=== PATIENT | female | born 1950 | race Caucasian/White ===

== ENCOUNTER → 2020-04-18 09:38 | Outpatient (CLI) | payer OTHER, SELFPAY ==
--- NOTE | ~2020-04-18 | DEXA_ITS ---
Bone Density Report Name: Nazia Ceballos Age: 70 Sex: Female Ethnicity: White Date of : 1950 Indication: osteopenia; monitoring treatment; height loss; hysterectomy; postmenopausal Referring Provider: HUMBERTO RICE Study: Bone densitometry was performed. Exam Date: April 18, 2020 Accession number: [id number] Bone Density: Region BMD T-score Z-score Classification AP Spine (L1-L4) 1.120 0.7 2.9 Normal Femoral Neck (Left) 0.673 -1.6 0.3 Osteopenia Total Hip (Left) 0.739 -1.7 0.0 Osteopenia Femoral Neck (Right) 0.631 -2.0 -0.1 Osteopenia Total Hip (Right) 0.731 -1.7 -0.1 Osteopenia Total Hip Mean 0.735 -1.7 -0.1 Osteopenia World Health Organization criteria for BMD impression classify patients as: Normal (T-score at or above -1.0), Osteopenia (T-score between -1.0 and -2.5), or Osteoporosis (T-score at or below -2.5). 10-year Fracture Risk: FRAX not reported because: Treated for osteoporosis Previous Exams: Region Exam Age BMD T-score BMD Change BMD Change Date g/cm2 vs Baseline vs Previous AP Spine(L1-L4) 04/18/2020 70 1.120 0.7 0.046 0.088* 10/19/2017 67 1.032 -0.1 -0.042 0.014 08/21/2015 65 1.018 -0.3 -0.056 0.000 07/10/2013 63 1.018 -0.3 -0.056 -0.022 04/15/2011 61 1.041 -0.1 -0.034 -0.019 04/10/2009 59 1.060 0.1 -0.015 -0.015 12/09/2004 54 1.074 0.2 Total Hip(Left) 04/18/2020 70 0.739 -1.7 -0.084 -0.005 10/19/2017 67 0.744 -1.6 -0.079 0.008 08/21/2015 65 0.736 -1.7 -0.087 -0.024 07/10/2013 63 0.760 -1.5 -0.063 -0.023 04/15/2011 61 0.783 -1.3 -0.039 0.009 04/10/2009 59 0.774 -1.4 -0.048 -0.048 12/09/2004 54 0.823 -1.0 Total Hip(Right) 04/18/2020 70 0.731 -1.7 -0.056 0.013 10/19/2017 67 0.718 -1.8 -0.068 -0.017 08/21/2015 65 0.735 -1.7 -0.051 0.016 07/10/2013 63 0.719 -1.8 -0.067 -0.061* 04/15/2011 61 0.780 -1.3 -0.007 0.006 04/10/2009 59 0.775 -1.4 -0.012 -0.012 12/09/2004 54 0.787 -1.3 *Denotes significance at 95% confidence level, LSC for AP Spine = 0.022 g/cm2, LSC for Total Hip = 0.027 g/cm2 Clinical Information Provided by Patient: Is being treated fo
--- NOTE | ~2020-04-18 | XR_ITS ---
EXAMINATION: XR lumbar spine 2-3V DATE: 04/18/2020 10:45 INDICATION: Dorsalgia, unspecified TECHNIQUE: Anteroposterior and lateral views of the lumbar spine, and cone-down lateral view of the l umbosacral junction were obtained. COMPARISON: None FINDINGS: There is lumbar levocurvature. No fracture is identified. There are 5 mm of retrolisthesis of L1 on L2 and L3 on L4. There is advanced loss of intervertebral disc space height at L5-S1, modera te loss of intervertebral disc space height at T12-L1 and L2-3. The vertebral body heights are mainta ined. There is no fracture. Degenerative osteophytes project from the anterior endplates of multiple vertebral bodies. There is mild facet osteoarthritis of the lower lumbar spine. Calcified atheroscler osis is noted. The bowel gas pattern is normal. IMPRESSION: 1. Severe spondylosis at L5-S1, otherwise moderate lumbar spondylosis without acute findings. Reviewed, dictated and finalized at location A. IMPRESSION: 1. Severe spondylosis at L5-S1, otherwise moderate lumbar spondylosis without a cute findings.
--- NOTE | ~2020-04-18 | MM_ITS ---
EXAMINATION: MM screening son BI w marisa HISTORY: Screening mammogram TECHNIQUE: Craniocaudal and mediolateral oblique 3-D tomosynthesis images were obtained and synthetic 2-D images were generated. CAD analysis was submitted and interpreted. COMPARISON: No prior mammogram is available for comparison at this institution. BREAST PARENCHYMAL COMPOSITION: The breasts are almost entirely fatty. FINDINGS: Stable mild fibroglandular asymmetry. There is no evidence of suspicious mass, calcificatio n, or architectural distortion to suggest malignancy in either breast. There has been no suspicious i nterval change. IMPRESSION: 1. No mammographic evidence of malignancy. 2. Recommend routine screening mammography in one year. BI-RADS Category 2: Benign finding(s). Reviewed, dictated and finalized at location A.
== END ==
PROVIDERS: Visit Provider Family Medicine
DX: Z12.31 Encounter for screening mammogram for malignant neoplasm of breast (principal); Z78.0 Asymptomatic menopausal state; M54.9 Dorsalgia, unspecified; M47.816 Spondylosis without myelopathy or radiculopathy, lumbar region; M85.89 Other specified disorders of bone density and structure, multiple sites
CPT/HCPCS: 72100; 77063; 77067; 77080

== ENCOUNTER 2020-10-24 13:15 | Outpatient (CLI) | payer OTHER, SELFPAY ==
--- NOTE | ~2020-10-24 | US_ITS ---
EXAMINATION: US carotid duplex BI DATE: 10/24/2020 14:31 INDICATION: Peripheral vascular disease. TECHNIQUE: Grayscale, color Doppler, and pulsed Doppler images of the cervical carotid arteries were obtained. The degree of vessel stenosis is placed in one of the following categories: normal, <50%, 5 0-69%, >=70% but less than near-occlusion, near-occlusion, or total occlusion. Note that percent sten osis relative to normal distal artery lumen diameter is indirectly measured from velocity measurement s as described by Sony, et al. Radiology 2003; 229:340-346. COMPARISON: None. FINDINGS: Tachycardia is noted. RIGHT: The right common carotid artery (CCA) peak systolic velocity (PSV) is 74 cm/s. The right internal car otid artery (ICA) PSV is 62 cm/s. The right ICA end-diastolic velocity (EDV) is 14 cm/s. The right IC A/CCA PSV ratio is 0.8. Grayscale and color Doppler images yield an estimate of <50% diameter reducti on from plaque in the ICA. There is antegrade flow in the right vertebral artery. LEFT: The left CCA PSV is 92 cm/s. The left ICA PSV is 89 cm/s. The left ICA EDV is 31 cm/s. The left ICA/C CA PSV ratio is 1.0. Grayscale and color Doppler images yield an estimate of <50% diameter reduction from plaque in the ICA. There is antegrade flow in the left vertebral artery. IMPRESSION: 1. <50% stenosis in the right internal carotid artery. 2. <50% stenosis in the left internal carotid artery. 3. Tachycardia. Reviewed, dictated and finalized at location A. 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
--- NOTE | ~2020-10-24 | US_ITS ---
EXAMINATION: US art doppler w johanna VELOZ DATE: 10/24/2020 14:31 INDICATION: Peripheral vascular disease. TECHNIQUE: Segmental pressures and plethysmographic and Doppler waveforms of the brachial and lower e xtremity arteries were obtained. COMPARISON: None. FINDINGS: Right and left brachial artery pressures of 119 mm Hg and 119 mm Hg, respectively, are concordant (no rmal difference <= 30 mmHg). The right high-thigh pressure index is 1.43 (normal > 1.2). The right ankle-brachial index (PADILLA) is 1 .28 (normal >= 0.9-1.0). The right great toe-brachial index (TBI) is 1.05 (normal >= 0.65). The right lower extremity segmental pressure gradients are normal (normal gradients <= 20-30 mmHg between harpreet cent levels on the same leg or the same levels on the two legs). Arterial Doppler waveforms are bipha sic from common femoral artery to the ankle. The left high-thigh pressure index is 1.26. The left PADILLA is 1.36. The left TBI is 0.77. The left lowe r extremity segmental pressure gradients are normal. Arterial Doppler waveforms are triphasic in comm on femoral artery and biphasic from superficial femoral artery to the ankle. IMPRESSION: 1. No significant arterial occlusive disease. Reviewed, dictated and finalized at location A. 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
== END 2020-10-24 13:16 | disposition home or self-care (01) ==
PROVIDERS: PCP Family Medicine; Visit Provider Family Medicine
DX: R09.89 Other specified symptoms and signs involving the circulatory and respiratory systems (principal); M79.89 Other specified soft tissue disorders; I73.9 Peripheral vascular disease, unspecified; I65.23 Occlusion and stenosis of bilateral carotid arteries
CPT/HCPCS: 93880; 93923

== ENCOUNTER 2021-03-20 00:56 | Day surgery (SDC) | payer OTHER, SELFPAY ==
[2021-03-19 16:55] VITALS: BMI 32.1
[2021-03-20] VITALS (8 sets, daily range): BP systolic 131–150; BP diastolic 50–64; PULSE 49–53; RESP 10–18; TEMP 35.9; O2SAT 94–100; BMI 32.3
[2021-03-20 08:11] LABS: Basophils Percent Auto 0.4 % (0.2-1.2); Eosinophils Absolute Auto 0.3 K/mm3 (0-0.3); Eosinophils Percent Auto 3.5 % (0-4.4); Hematocrit 38.4 % (37.0-47.0); Hemoglobin 12.3 g/dL (12.0-15.0); Immature Granulocyte Absolute 0.04 K/mm3 (0.00-0.031); Immature Granulocyte Percent A 0.4 % (0-0.5); Lymphocytes Absolute Auto 3.28 K/mm3 (0.9-3.2); Lymphocytes Percent Auto 34.5 % (18.3-44.2); Mean Corpuscular Hemoglobin 30.7 pg (26-34); Mean Corpuscular Volume 95.8 fl (80-100); Mean Platelet Volume 10.8 fl (7.4-10.4); Monocytes Absolute Auto 0.7 K/mm3 (0.1-0.6); Monocytes Percent Auto 7.3 % (2.6-8.5); Neutrophils Absolute Auto 5.1 K/mm3 (1.3-6.7); Neutrophils Percent Auto 53.9 % (45.5-73.1); Platelet Count Result 199 k/mm3 (150-375); Red Blood Count 4.01 M/mm3 (4.2-5.4); Red Cell Distribution Width 14.4 % (11.5-14.5); White Blood Count 9.5 K/mm3 (4.5-10.0)
[2021-03-20 09:31] LABS: Anion Gap 9 mmol/L (8-16); Blood Urea Nitrogen 18 mg/dL (7-17); Calcium 9.4 mg/dL (8.4-10.2); Carbon Dioxide 24 mmol/L (22-30); Chloride 106 mmol/L (98-107); Estimated CRCL calculation 66 ml/min; Estimated Glomerular Filt Rate > 60; Glucose 124 mg/dL (65-110); Potassium 4.5 mmol/L (3.4-5.0); Sodium 139 mmol/L (137-145)
--- NOTE | 2021-03-20 10:36 | WPDMODSED ---
Moderate Sedation Note-Pt Data Patient Data Allergies Allergy/AdvReac Type Severity Reaction Status Date / Time allopurinol Allergy Intermediate diarrhea Verified 03/20/21 08:25 Sulfa (Sulfonamide Allergy Mild rash and Verified 03/20/21 08:25 Antibiotics) nausea Home Medications Medication Instructions Recorded Confirmed Type calcium carbonate-vitamin D3 1 tablet PO BID 07/05/19 03/19/21 History [Calcium 600 + D(3)] cholecalciferol (vitamin D3) 5,000 unit PO DAILY 07/05/19 03/19/21 History vitamin B complex [B 1 tablet PO DAILY 07/05/19 03/19/21 History Complex-Vitamin B12] furosemide 20 mg tablet 20 mg PO DAILY #90 tablet 02/27/20 03/19/21 Rx benazepril 40 mg tablet 40 mg PO DAILY #90 tablet 04/18/20 03/19/21 Rx atorvastatin 10 mg tablet 10 mg PO HS #90 tablet 06/27/20 03/19/21 Rx blood sugar diagnostic #300 ea 09/03/20 01/03/21 Rx blood-glucose meter #1 ea 09/03/20 01/03/21 Rx lancets 28 gauge #300 ea 09/03/20 01/03/21 Rx apixaban 5 mg tablet 5 mg PO BID 10/31/20 03/19/21 History metoprolol tartrate 25 mg tablet 25 mg PO DAILY 10/31/20 03/19/21 History levothyroxine 50 mcg tablet 50 mcg PO DAILY #90 tablet 12/10/20 03/19/21 Rx metformin 500 mg tablet 500 mg PO BID #180 tablet 12/10/20 03/19/21 Rx alendronate 70 mg tablet 70 mg PO WEEKLY #14 tablet 01/10/21 03/19/21 Rx Current Medications: Active Medications Sodium Chloride (Normal Saline Iv) 500 mls @ 100 mls/hr IV CONT .Q5H KARINA Sedation/Anesthesia: No previous sedation/anesthesia problems (including family history). [facility] Past Medical History Medical History Benign essential HTN Chronic cellulitis CKD (chronic kidney disease) stage 2, GFR 60-89 ml/min Diabetic neuropathy Diabetic peripheral neuropathy Hypothyroidism (acquired) Mixed hyperlipidemia Osteoporosis Thyroid nodule Surgical History Surgical History Hx of cholecystectomy Hx of hysterectomy for benign disease Social History Social History Social History: Smoking status: Never smoker Second hand tobacco smoke exposure: No Alcohol intake: never Substance use: never Substance use type: does not use Living arrangements: alone Gender identity (if verbalized by the patient): Female Spiritual care concerns: No Mod Sed Physical Exam Physical Exam Pre Procedural Exam: Normal: Appearance, Eyes, Ears, Nose, Neck, Throat, Airway, Lungs, Heart Size, Heart Rate, Heart Rhythm, Neuro Exam, Abdomen, Liver, Kidneys, Spleen, Breasts, Genitalia, Extremities and Skin Hours since solid foods: 8 Hours since liquid intake: 8 Mallampati Classification: class 1 Internal Medicine - PN: Obj Da Vital Signs Vital Signs: Vital Signs - 24 hr 03/20/21 08:25 Temperature 35.9 C L Pulse Rate 51 L Respiratory Rate 10 L Blood Pressure 150/61 H Pulse Oximetry 98 Meds/Results Medications: Active Medications Generic Name Dose Route Start Last Admin Trade Name Freq PRN Reason Stop Dose Admin Sodium Chloride 500 mls @ 100 mls/hr 03/20/21 07:30 Normal Saline Iv IV CONT .Q5H KARINA Labs CBC & Chem 7: 03/20/21 07:55 03/20/21 08:46 Labs: Laboratory Results - last 24 hr 03/20/21 03/20/21 07:55 08:46 WBC 9.5 RBC 4.01 L Hgb 12.3 Hct 38.4 MCV 95.8 MCH 30.7 MCHC 32.0 RDW 14.4 Plt Count 199 MPV 10.8 H Immature Gran % (Auto) 0.4 Neut % (Auto) 53.9 Lymph % (Auto) 34.5 [place] % (Auto) 7.3 Eos % (Auto) 3.5 Baso % (Auto) 0.4 Lymph # (Auto) 3.28 H [place] # (Auto) 0.7 H Eos # (Auto) 0.3 Baso # (Auto) 0.0 Abs Immat Gran (auto) 0.04 H Absolute Neuts (auto) 5.1 Absolute Nucleated RBC 0.0 Nucleated RBC % 0.0 Sodium 139 Potassium 4.5 Chloride 106 Carbon Dioxide 24 Anion Gap 9 BUN 18 H Creatinine 0.80 Estim Crea
--- NOTE | 2021-03-20 10:37 | WPDCARDPROC ---
Cardiac Cath Procedure Note Date of procedure:: 03/20/21 Performing physician:: Donny Davila MD Date of service March 20, 2021 Indication:: abnormal stress test Brief clinical history:: this 71-year-old female past history of hypertension, high for thyroidism, diabetes and Mobitz type 1 av block and venous insufficiency who was referred to our office for abnormal stress test. Apparently patient was having premature atrial contractions and premature ventricular contractions and patient was referred for stress testing that showed fixed area of infarction in the inferior wall and with partial reversibility and small area of fixed defect in anterior wall. She was diagnosed with atrial fibrillation our office Procedure Procedure performed:: 1-Moderate sedation that started at 10:11 a.m.and ended at 10:32 a.m. using mg of 2Versed and 75mcg fentanyl. The registered nurse was tasha bravo 2-Selective left and right coronary angiogram. 3-Left heart catheterization with measurement of LVEDP and measurement of gradient across aortic valve. 3- LV angiogram. 4-Right common femoral arterial angiogram. 5-Deployment of 6 [place] Angio-Seal. Sedation/Medication given:: Moderate sedation. Access site:: Right common femoral artery. Estimated blood loss:: 10cc Procedure note:: After informed consent patient was brought in to qc lab technician with the was draped and prepped in usual manner. Moderate sedation was given and the right groin was infiltrated using 1% lidocaine. Five [place] sheath was obtained using micropuncture needle and the modified Seldinger technique. Selective left coronary angiogram was done using JL4 catheter with the tip of the catheter placed in the left main coronary artery. Selective right coronary angiogram was done using JR4 catheter with the tip of the catheter placed to the right coronary artery. After that 5 [place] pigtail catheter was advanced across the aortic valve into the left ventricle with measurement of LVEDP and measurement of gradient across aortic valve. LV angiogram was done as well.Right common femoral arterial angiogram was done. Findings:: 1- left coronary artery is a large artery that divides into large LAD, large circumflex artery. Left main is Free of disease. 2- left anterior descending artery is a large artery that runs and wraps around the apex. minimal irregularities. Large diagonal 1 proximally that is free of disease and medium-sized diagonal 2 branch that has minimal irregularities. 3- leftcircumflex artery is a large artery And has minimal irregularities. High om 1 branch that looks unremarkable. 4- right coronary artery is Large artery and dominant and free of disease 5- LVEDP was 15-20 mm Hgand no gradient across aortic valve. 5- normal LV function with estimated ejection fraction 60%. 6- opening arterial pressure 160/80was and closing pressure was 160/80 7- right femoral artery angiogram shows no significant disease in the right common femoral artery. Conclusion:: minimal coronary irregularities false-positive stress test Assessment and Plan Additional Plan continue aggressive risk factor modification for
--- NOTE | 2021-03-20 10:41 | PM.IMHP ---
H&P: HPI History of Present Illness Date/Time: 03/20/21 10:41 Chief Complaint: abnormal stress test Narrative: this 71-year-old female past history of hypertension, high for thyroidism, diabetes and Mobitz type 1 av block and venous insufficiency who was referred to our office for abnormal stress test. Apparently patient was having premature atrial contractions and premature ventricular contractions and patient was referred for stress testing that showed fixed area of infarction in the inferior wall and with partial reversibility and small area of fixed defect in anterior wall. She was diagnosed with atrial fibrillation our office Review of Systems Review of Systems: All systems reviewed & are unremarkable except as noted in HPI and below Constitutional: Constitutional: Denies chills, Denies fatigue, Denies fever(s), Denies headache(s) and Denies snoring Eyes: Eyes: Denies eye discharge and Denies loss of vision ENT: Denies dizziness, Denies headache(s), Denies nasal discharge and Denies sore throat Cardiovascular: Cardiovascular: Reports as per HPI, Denies chest pain, Denies syncope, Denies rapid heart rate, Denies leg edema, Denies dyspnea, Denies dyspnea on exertion, Denies orthopnea and Denies paroxysmal nocturnal dyspnea Respiratory: Respiratory: Denies chest congestion, Denies cough, Denies dyspnea, Denies dyspnea on exertion, Denies snoring and Denies wheezing Gastrointestinal: Gastrointestinal: Denies abdominal pain, Denies diarrhea, Denies nausea and Denies vomiting Genitourinary: Genitourinary: Denies hematuria, Denies urinary frequency, Denies dysuria and Denies flank pain Musculoskeletal: Musculoskeletal: Denies myalgias, Denies arthralgias and Denies joint swelling Neurologic: Denies Abnormal speech present, Denies dizziness, Denies syncope, Denies headache(s), Denies focal weakness and Denies loss of vision Psychiatric: Psychiatric: Denies anxiety and Denies depression Endocrine: Endocrine: Denies cold intolerance, Denies fatigue and Denies heat intolerance Hematologic/Lymphatic: Hematologic/Lymphatic: Denies easy bleeding and Denies easy bruising Allergic/Immunologic: Allergic/Immunologic: Denies urticaria and Denies wheezing PMFSH Past Medical History Medical History Benign essential HTN Chronic cellulitis CKD (chronic kidney disease) stage 2, GFR 60-89 ml/min Diabetic neuropathy Diabetic peripheral neuropathy Hypothyroidism (acquired) Mixed hyperlipidemia Osteoporosis Thyroid nodule Surgical History Surgical History Hx of cholecystectomy Hx of hysterectomy for benign disease Social History Social History Social History: Smoking status: Never smoker Second hand tobacco smoke exposure: No Alcohol intake: never Substance use: never Substance use type: does not use Living arrangements: alone Gender identity (if verbalized by the patient): Female Spiritual care concerns: No Meds Home Medications and Allergies Home Medications Medication Instructions Recorded Confirmed Type calcium carbonate-vitamin D3 1 tablet PO BID 07/05/19 03/19/21 History [Calcium 600 + D(3)] cholecalciferol (vitamin D3) 5,000 unit PO DAILY 07/05/19 03/19/21 History vitamin B complex [B 1 tablet PO DAILY 07/05/19 03/19/21 History Complex-Vitamin B12] furosemide 20 mg tablet 20 mg PO DAILY #90 tablet 02/27/20 03/19/21 Rx benazepril 40 mg tablet 40 mg PO DAILY #90 tablet 04/18/20 03/19/21 Rx atorvastatin 10 mg tablet 10 mg PO HS #90 tablet 06/27/20 03/19/21 Rx blood sugar diagnostic #300 ea 09/03/20 01/03/21 Rx blood-glucose meter #1 ea 09/03/20 01/03/21 Rx lancets 28 gauge #300 ea 09/03/20 01/03/21 Rx apixaban 5 mg tablet 5 mg PO BID 10/31/20 03/19/21 History metoprolol tartrate 25 mg tablet 25 mg PO DAILY 10/31/20 03/19/21 Histor
--- NOTE | 2021-03-20 13:08 | SUR.PHASEII ---
Patient ambulated to bathroom and then to chair with no problems or signs of bleeding. Will continue to monitor.
== END 2021-03-20 14:45 | disposition home or self-care (01) ==
PROVIDERS: PCP Family Medicine; Visit Provider Internal Medicine Cardiovascular Disease
PROC: 4A023N7 Measurement of Cardiac Sampling and Pressure, Left Heart, Percutaneous Approach (ICD-10-PCS; CPT 93452; principal; 2021-03-20 09:00)
DX: R94.39 Abnormal result of other cardiovascular function study (principal); I12.9 Hypertensive chronic kidney disease with stage 1 through stage 4 chronic kidney disease, or unspecified chronic kidney disease; E03.9 Hypothyroidism, unspecified; I44.1 Atrioventricular block, second degree; I87.2 Venous insufficiency (chronic) (peripheral); N18.2 Chronic kidney disease, stage 2 (mild); E11.22 Type 2 diabetes mellitus with diabetic chronic kidney disease; E11.42 Type 2 diabetes mellitus with diabetic polyneuropathy; E78.2 Mixed hyperlipidemia; M81.0 Age-related osteoporosis without current pathological fracture; Z79.01 Long term (current) use of anticoagulants; Z79.84 Long term (current) use of oral hypoglycemic drugs
CPT/HCPCS: 36415; 80048; 85025; 93458; C1760; C1887; C1894; G0269; J1644; J2250; J2405; J3010; J7040

== ENCOUNTER → 2021-05-02 14:39 | Outpatient (CLI) | payer OTHER, SELFPAY ==
--- NOTE | ~2021-05-02 | MM_ITS ---
EXAMINATION: MM screening son BI w marisa HISTORY: Screening TECHNIQUE: Craniocaudal and mediolateral oblique 3-D tomosynthesis images were obtained and synthetic 2-D images were generated. CAD analysis was submitted and interpreted. COMPARISON: Comparison to multiple prior studies sequentially, with oldest reviewed study dated 05/31. BREAST PARENCHYMAL COMPOSITION: There are scattered areas of fibroglandular density. FINDINGS: There is no evidence of suspicious mass, calcification, or architectural distortion to sugg est malignancy in either breast. There has been no suspicious interval change. IMPRESSION: 1. No mammographic evidence of malignancy. 2. Recommend routine screening mammography in one year. BI-RADS Category 1: Negative Reviewed, dictated and finalized at location A.
== END ==
PROVIDERS: PCP Family Medicine; Visit Provider Family Medicine
DX: Z12.31 Encounter for screening mammogram for malignant neoplasm of breast (principal)
CPT/HCPCS: 77063; 77067

== ENCOUNTER → 2022-11-18 11:31 | Outpatient (CLI) | payer OTHER, SELFPAY ==
--- NOTE | ~2022-11-18 | MM_ITS ---
EXAMINATION: MM screening son BI w marisa HISTORY: Screening TECHNIQUE: Craniocaudal and mediolateral oblique 3-D tomosynthesis images were obtained and synthetic 2-D images were generated. CAD analysis was submitted and interpreted. COMPARISON: Comparison to multiple prior studies sequentially, with oldest reviewed study dated 07/31. BREAST PARENCHYMAL COMPOSITION: FINDINGS: There is no evidence of suspicious mass, calcification, or architectural distortion to sugg est malignancy in either breast. There has been no suspicious interval change. IMPRESSION: 1. No mammographic evidence of malignancy. 2. Recommend routine screening mammography in one year. BI-RADS Category 1: Negative Reviewed, dictated and finalized at location A.
--- NOTE | ~2022-11-18 | DEXA_ITS ---
Bone Density Report Name: GAUTAM MAYEN Age: 72 Sex: Female Ethnicity: White Date of : 1950 Indication: osteopenia; monitoring treatment; height loss; hysterectomy; postmenopausal Referring Provider: HUMBERTO RICE Study: Bone densitometry was performed. Exam Date: November 18, 2022 Accession number: [id number] Bone Density: Region BMD T-score Z-score Classification AP Spine (L1-L4) 1.153 1.0 3.3 Normal Femoral Neck (Left) 0.667 -1.6 0.4 Osteopenia Total Hip (Left) 0.776 -1.4 0.4 Osteopenia Femoral Neck (Right) 0.614 -2.1 -0.1 Osteopenia Total Hip (Right) 0.750 -1.6 0.2 Osteopenia Total Hip Mean 0.763 -1.5 0.3 Osteopenia World Health Organization criteria for BMD impression classify patients as: Normal (T-score at or above -1.0), Osteopenia (T-score between -1.0 and -2.5), or Osteoporosis (T-score at or below -2.5). 10-year Fracture Risk: FRAX not reported because: Treated for osteoporosis Previous Exams: Region Exam Age BMD T-score BMD Change BMD Change Date g/cm2 vs Baseline vs Previous AP Spine(L1-L4) 11/18/2022 72 1.153 1.0 0.079* 0.033 04/18/2020 70 1.120 0.7 0.046 0.088* 10/19/2017 67 1.032 -0.1 -0.042 0.014 08/21/2015 65 1.018 -0.3 -0.056 0.000 07/10/2013 63 1.018 -0.3 -0.056 -0.022 04/15/2011 61 1.041 -0.1 -0.034 -0.019 04/10/2009 59 1.060 0.1 -0.015 -0.015 12/09/2004 54 1.074 0.2 Total Hip(Left) 11/18/2022 72 0.776 -1.4 -0.046* 0.037 04/18/2020 70 0.739 -1.7 -0.084 -0.005 10/19/2017 67 0.744 -1.6 -0.079 0.008 08/21/2015 65 0.736 -1.7 -0.087 -0.024 07/10/2013 63 0.760 -1.5 -0.063 -0.023 04/15/2011 61 0.783 -1.3 -0.039 0.009 04/10/2009 59 0.774 -1.4 -0.048 -0.048 12/09/2004 54 0.823 -1.0 Total Hip(Right) 11/18/2022 72 0.750 -1.6 -0.036* 0.019 04/18/2020 70 0.731 -1.7 -0.056 0.013 10/19/2017 67 0.718 -1.8 -0.068 -0.017 08/21/2015 65 0.735 -1.7 -0.051 0.016 07/10/2013 63 0.719 -1.8 -0.067 -0.061* 04/15/2011 61 0.780 -1.3 -0.007 0.006 04/10/2009 59 0.775 -1.4 -0.012 -0.012 12/09/2004 54 0.787 -1.3 *Denotes significance at 95% confidence level, LSC for
== END ==
PROVIDERS: PCP Family Medicine; Visit Provider Family Medicine
DX: Z12.31 Encounter for screening mammogram for malignant neoplasm of breast (principal); Z78.0 Asymptomatic menopausal state; M85.852 Other specified disorders of bone density and structure, left thigh; M85.851 Other specified disorders of bone density and structure, right thigh
CPT/HCPCS: 77063; 77067; 77080

== ENCOUNTER 2023-12-13 14:36 | Outpatient (CLI) | payer OTHER, SELFPAY ==
--- NOTE | ~2023-12-13 | MM_ITS ---
EXAMINATION: MM screening son BI w marisa HISTORY: Screening TECHNIQUE: Craniocaudal and mediolateral oblique 3-D tomosynthesis images were obtained and synthetic 2-D images were generated. CAD analysis was submitted and interpreted. COMPARISON: Comparison to multiple prior studies sequentially, with oldest reviewed study dated 04/18. BREAST PARENCHYMAL COMPOSITION: Not dense: There are scattered areas of fibroglandular density. FINDINGS: Nodular asymmetries in the subareolar location of the left breast are more prominent than o n prior examination. The right breast is stable. IMPRESSION: 1. Developing nodular asymmetry subareolar location of the left breast. 2. Additional mammographic views and possible breast ultrasound are recommended. BI-RADS Category 0: Incomplete: Needs additional imaging evaluation. Reviewed, dictated and finalized at location B. IMPRESSION: 1. Developing nodular asymmetry subareolar location of the left breast. 2. Additional mammographic views and possible breast ultrasound are recommended . BI-RADS Category 0: Incomplete: Needs additional imaging evaluation.
== END 2023-12-13 14:37 ==
LOC: MICIMG 14:37
PROVIDERS: PCP Obstetrics & Gynecology; Visit Provider Obstetrics & Gynecology
DX: Z12.31 Encounter for screening mammogram for malignant neoplasm of breast (principal); R92.8 Other abnormal and inconclusive findings on diagnostic imaging of breast
CPT/HCPCS: 77063; 77067

== ENCOUNTER 2024-01-13 08:58 | Outpatient (CLI) | payer OTHER, SELFPAY ==
--- NOTE | ~2024-01-13 | MMUS_ITS ---
EXAMINATION: MM diagnostic son LT w marisa, US breast LT limited HISTORY: Developing nodular asymmetry reported in the left subareolar area on December 13, 2023 screenin g mammogram TECHNIQUE: Additional 3-D tomosynthesis images of were performed and synthetic 2-D images were genera velma. CAD analysis was submitted and interpreted. High resolution breast ultrasound was performed. COMPARISON: December 13, 2023 bilateral screening mammogram 11/18/2022 bilateral screening mammogram FINDINGS: MAMMOGRAPHIC FINDINGS: There are several benign appearing calcifications in the inferior subareolar area. No suspicious mass or architectural distortion or malignant calcification, skin thickening or retract ion is evident. ULTRASOUND: In the 6:00 subareolar area there are a couple of circumscribed hypoechoic areas measuring approximat khanh 2 mm. There is no internal vascularity or posterior shadowing. These are probably benign. IMPRESSION: 1. Probable benign findings 2. Recommend 6 month diagnostic left mammogram and targeted left breast ultrasound follow-up BI-RADS category 3, probably benign findings. Reviewed, dictated and finalized at location C. IMPRESSION: 1. Probable benign findings 2. Recommend 6 month diagnostic left mammogram and targeted left breast ultraso und follow-up BI-RADS category 3, probably benign findings.
== END 2024-01-13 08:59 ==
LOC: MICIMG 08:59
PROVIDERS: PCP Obstetrics & Gynecology; Visit Provider Obstetrics & Gynecology
DX: R92.8 Other abnormal and inconclusive findings on diagnostic imaging of breast (principal)
CPT/HCPCS: 76642; 77061; 77065; G0279

== ENCOUNTER 2024-07-18 09:33 | Outpatient (CLI) | payer OTHER, SELFPAY ==
--- NOTE | ~2024-07-18 | MMUS_ITS ---
EXAMINATION: MM diagnostic son LT w marisa, US breast LT limited HISTORY: 6 month left breast follow-up TECHNIQUE: 3-D tomosynthesis images of the left breast were performed and synthetic 2-D images were g enerated. CAD analysis was submitted and interpreted. High resolution limited left breast ultrasound was performed. COMPARISON: 01/13/2024, 12/13/2023, 11/18/2022 BREAST PARENCHYMAL COMPOSITION:Not Dense. The breasts are almost entirely fatty FINDINGS: MAMMOGRAPHIC FINDINGS: Stable parenchymal pattern of the left breast. No suspicious mass lesion or distortion. No suspicious mesenteric or calcification. ULTRASOUND: At the 6:00 position left subareolar region, there are 2 adjacent 2 mm hypoechoic round structures, s table from prior exam. No new sonographic lesion identified. IMPRESSION: No definite evidence for malignancy. Stable tiny hypoechoic structures seen sonographically at the 6 :00 position left subareolar region. BI-RADS Category 2: Benign finding(s). Reviewed, dictated and finalized at location M. AND SCIENCES DEPARTMENT CHAIR IMPRESSION: No definite evidence for malignancy. Stable tiny hypoechoic structures seen so nographically at the 6:00 position left subareolar region. BI-RADS Category 2: Benign finding(s).
== END 2024-07-18 09:34 | disposition home or self-care (01) ==
LOC: MICIMG 09:35
PROVIDERS: PCP Family Medicine; Visit Provider Obstetrics & Gynecology
DX: R92.8 Other abnormal and inconclusive findings on diagnostic imaging of breast (principal)
CPT/HCPCS: 76642; 77061; 77065; G0279

== ENCOUNTER 2024-10-25 11:28 | Outpatient (CLI) | payer OTHER, SELFPAY ==
--- NOTE | 2024-10-25 11:30 | ECG_ITS ---
Test Date: 2024-10-25 12:05:10 Measurements Intervals [place] Rate: 55 P: 85 NC: 152 QRS: -12 QRSD: 92 T: 5 QT: 424 QTc: 409 Interpretive Statements SINUS BRADYCARDIA WITH SUPRAVENTRICULAR BIGEMINY LOW QRS VOLTAGE IN PRECORDIAL LEADS POSSIBLE ANTERIOR MYOCARDIAL INFARCTION CONSIDER INFERIOR INFARCT, AGE INDETERMINATE BASELINE ARTIFACT- I, II, III, AVR, AVL, AVF, V1-V6 ABNORMAL ECG No previous ECG available for comparison Electronically Signed On 10-25-2024 12:52:53 HAND SPRAY OPERATOR by Major Cervantes D.O.
[2024-10-25 12:28] LABS: Anion Gap 12 mmol/L (4-12); Blood Urea Nitrogen 38 mg/dL (7-17); Calcium 10.2 mg/dL (8.4-10.2); Carbon Dioxide 23 mmol/L (22-30); Chloride 103 mmol/L (98-107); Estimated Glomerular Filt Rate 52; Glucose 107 mg/dL (65-110); Potassium 5.1 mmol/L (3.4-5.0); Sodium 138 mmol/L (137-145)
[2024-10-25 12:36] LABS: INR 1.1; Prothrombin Time 14.8 Seconds (11.1-14.7)
[2024-10-25 12:37] LABS: Partial Thromboplastin Time 34.1 Seconds (22.3-36.8)
--- OUTSIDE RECORDS SUMMARY | 2024-10-25 13:29 | XMS_ITS | Referral Summary ---
Author Organization [facility] [address] [facility] [address] Address [address] [place] [address] Care Team Providers Care Instructor Programmable Controllers Name Role Phone Francisco J Doe MD Primary Care Provider Encounters Date Type Department Care Team Description 07/25/2024 Telephone [facility] Cardiology [address] [place] [address] Donny Davila MD Med Refill from Last 3 Months Allergies Active Allergy Reactions Criticality Noted Date Comments Allopurinol Diarrhea Low 06/19/2024 Clindamycin Rash Medium 06/19/2024 Sulfa (Sulfonamide Antibiotics) Other (See comments) Low 10/21/2020 Disoriented Tizanidine Dizziness Low 06/19/2024 Medications levothyroxine (SYNTHROID) 50 mcg tablet Take 1 tablet (50 mcg total) by mouth daily 09/05/2020 Active metFORMIN (GLUCOPHAGE) 500 mg tablet Take 1 tablet (500 mg total) by mouth 2 (two) times a day 09/12/2020 Active furosemide (LASIX) 20 mg tablet TAKE 1 TABLET BY MOUTH EVERY DAY FOR SWELLING 08/21/2020 Active benazepriL (LOTENSIN) 40 mg tablet Take 1 tablet (40 mg total) by mouth daily 10/08/2020 Active atorvastatin (LIPITOR) 10 mg tablet Take 1 tablet (10 mg total) by mouth nightly 09/26/2020 Active calcium carb/vitamin D3/vit K1 (CALCIUM-VITAMI N D3-VITAMIN K ORAL) Take by mouth Active B complex 50-guskc-P-biot -zinc 2-515-281-50 gg-dc-nly-mg tablet Take by mouth Active cholecalciferol (VITAMIN D-3) 5,000 unit tablet Active azelastine 0.15 % (205.5 mcg) spray,non-aeros ol Active vitamins A,C,E-zinc-katherine er 7,160-113-100 qnez-gx-gbsn tablet,delayed release (DR/EC) Take by mouth Active metoprolol tartrate (LOPRESSOR) 25 mg immediate release tabletIndicatio ns:PAF (paroxysmal atrial fibrillation) (CMS/HCC) (HCC) Take 1 tablet (25 mg total) by mouth 2 (two) times a day 60 tablet 11 10/24/2020 Active Eliquis 5 mg tabletIndicatio ns:PAF (paroxysmal atrial fibrillation) (CMS/HCC) (HCC) TAKE 1 TABLET BY MOUTH TWICE A DAY 60 tablet 6 07/25/2024 Active Active Problems Problem Noted Date Diagnosed Date Mild aortic stenosis 11/18/2020 PAF (paroxysmal atrial fibrillation) (CMS/HCC) 0 10/24/2020 Hypertension Hyperlipidemia Resolved Problems Problem Noted Date Diagnosed Date Resolved Date Abnormal stress test 10/24/2020 022 Social History Tobacco Use Types Packs/Day Years Used Date Smoking Tobacco: Never Smokeless Tobacco: Never Tobacco Cessation:Counseling Given: Not Answered Personal Safety Answer Date Recorded Getting School Help Needed Not on file 10/24 Comments Unknown Sex and Gender Information Value Date Recorded Sex Assigned at Not on file Legal Sex 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 Gender Identity Not on file Sexual Orientation Not on file Last Filed Vital Signs Vital Sign Reading Time Taken Comments Blood Pressure 137/78 06/19/2024 12:32 PM CDT Pulse 60 06/19/2024 12:32 PM CDT Temperature 36.5 C (97.7 F) 10/21/2020 9:20 AM DYE BOARDING MACHINE OPERATOR Respiratory Rate - - Oxygen Saturation 98% 06/19/2024 12: 32 PM CDT Inhaled Oxygen Concentration - - Weight 86.1 kg (189 lb 12.8 oz) 024 12:32 PM CDT Height 172.7 cm (5' 8 ) 06/19/2024 12:3 2 PM CDT Body Mass Index 28.86 06/19/2024 12:32 PM CDT Plan of Treatment Not on file Insurance [employer] Advance Directives For more information, please contact: [phone] Documents on File Type Date Recorded Patient Buggy Ladle Tender Expl anation ADVANCE DIRECTIVE 01/10/2014 12:00 AM MICHELLE [employer] OF SURVEILLANCE SENSOR OFFICER FINANCIAL/MEDICAL Care Teams Instructor Programmable Controllers Relationship Specialty Start Date End Date Francisco J Doe MD [address] [place] [address] PCP - General Family Medicine 06/19/24
--- OUTSIDE RECORDS SUMMARY | 2024-10-25 13:29 | XMS_ITS | Continuity of Care Document ---
Author Organization [facility] Address [address] [facility] [place] [address] Phone Care Team Providers Care Contract Negotiation Specialist Name Role Phone Gage Peralta MD, FACS Unavailable Unavailab le Allergies, Adverse Reactions, Alerts Substance Reaction Status Criticality No Known Allergies Active No Inform ation Medications Medication Instructions Dosage Effective Dates (start - stop) Status Comments cephalexin 500 mg capsule take 1 capsule by oral route every 6 hours 500 MG - Active furosemide 20 mg tablet take 1 tablet by oral route every day 20 MG - Active hydroxyzine HCl 25 mg tablet take 1 tablet by oral route 3 times every day as needed 25 MG - Active levothyroxine 50 mcg tablet take 1 tablet by oral route every day 50 MCG - Active amlodipine 10 mg tablet take 1 tablet by oral route every day 10 MG - Active metformin 500 mg tablet take 1 tablet by oral route 2 times every day with morning and evening meals 500 MG - Active atorvastatin 10 mg tablet take 1 tablet by oral route every day 10 MG - Active benazepril 40 mg tablet take 1 tablet by oral route every day 40 MG - Active azelastine 0.05 % eye drops instill 1 drop by ophthalmic route 2 times every day into affected eye(s) 1.00 drop - Active alendronate 70 mg tablet take 1 tablet by oral route every week in the morning, at least 30 min before first food, beverage, or medication of day 70 MG - Active vitamin B complex tablet take 1 capsule by oral route every day 1 capsule - Active Vitamin D3 5,000 unit tablet take 1 by oral route every day 1 - Active AREDS 2 ORAL CAPSULE take 1 tablet once daily - Active Calcium 600 + D(3) 600 mg calcium-200 unit capsule take 1 by oral route every day 1 - Active Procedures Procedure Date After Cataract Laser Surgery No Charge Refraction No Charge Refraction After Cataract Laser Surgery Office/outpatient Visit, Est Remove Cataract, Insert Lens Remove Cataract, Insert Lens IOLMaster IOLMaster Corneal Topography No Charge Refraction Eye Exam, New Patient Advance Directives Directive Yes / No Effective Date File Name No Information Encounters Encounter Description Practice Location Reason(s) For Visit Diagnoses Date Provider Providers Copied on Encounter [facility], [address] [place] [address] [employer] [address], [place], [place], [id number], [place] tel:[phone] [facility] (chief complaint) Other secondary cataract, right eye 0 Fabian Gage. [address], [place], [place], [address], [place]. tel:[phone] Referring Provider: Avel Sandoval OD, [address] [place], [address]. tel:[phone] Office/outpa tient Visit, Est [facility], [facility] [address], [place], [place], [id number], [place] tel:[phone] [facility] Yag PC (chief complaint) Other secondary cataract, bilateralOthe r secondary cataract, left eye Oct-0 0 [place]. [address], [place], [place], [address], [place]. tel:[phone] Referring Provider: Avel Sandoval OD, [address] [place], [address]. tel:[phone] [facility], [id number], [place], [place], [address], [place] tel:[phone] [facility] [place] No Information 0 Yury OD Yadi. [address] [place] [address] [address], [address], [place], [place], [address], [place]. tel:[phone] [facility], [address] [place] [address] [address], [place], [place], [address], tel:[phone] [facility] No Information 9 Fabian Gage. [address] [place] [address] [address], [address], [place], [place], [address], [place]. tel:[phone] Referring Provider: Avel Sandoval OD, [address] [facility], [place], [address]. tel:[phone] [facility], [address] [place] [address] [address], [place], [place], [address], tel:[phone] [facility] No Information 9 [place] [facility]. [address] [place] [address] [employer] [facility], [address], [place], [place], [address], [place]. tel:[phone] Referring Provider: Avel Sandoval OD, [address] [facility], [place], [address]. tel:[phone] [facility], [address] [place] [address] [address], [place], [place], [address], [place] tel:[phone] [facility] [place] Testing only (chief complaint) No Information 9 [place] [facility]. [address] [place] [address] [employer] [facility], [address], [place], [place], [address], [place]. tel:[phone] Referring Provider: Avel Sandoval OD, [address] [facility], [place], [address]. tel:[phone] [facility], [address] [place] [address] [address], [place], [place], [id number], [place] tel:[phone] [facility] Cataract evaluation (chief complaint) Combined forms of age-related cataract, bilateralType 2 diabetes mellitus without complications Aug-0 9 Fabian [place]. [address], [address], [place], [place], [address], [place]. tel:[phone] Referring Provider: Avel Sandoval OD, [address] [facility], [place], [address]. tel:[phone] Family History Family Member Type Diagnosis Age At Onset Problem (finding) Family history of Diabe daniela mellitus Problem Family history o f degenerative disorder of macula Payers Payer name Insurance type Covered alliance party ID Authoriza tidenise(s) [employer] Claims [id number] Social History Type Description Quantity Date Captured Comments Alcohol Use Details No Caffeine Use Details No Tobacco Use Status Current non-smoker 20 Smoking Status Never smoker Non-Smoking Tobacco Use Details : No Details Available : No Details Available Sex Female Chief Complaint And Reason For Visit From encounter dated '07/02/2020 08:30'. Yag PC (chief complaint). Description: The 70 year old female presents for evaluation of Yag PC in the right eye. Hx of PC IOL OU, PCO OD, Yag PC OS, AMD OD. 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 Pt using Azelastine OU prn. Pt states VA blurry, like looking through a fog. Pt states it's difficult to drive at night due to headlight glare, and it's difficult to see small print. DVA andNVA gradual decrease OD x 3 mos. Reason For Referral Reason For Referral No Information Plan Of Treatment Date Type Action Status Patient Education Learning About YAG Lase r Capsulotomy completed Patient Education Cataract Surgery: What to Expect at H~ completed History Of Present Illness Encounter Date Complaint History Of Prese nt Illness Yag PC The 70 year old female presents for evaluation of Yag PC in the right eye. Hx of PC IOL OU, PCO OD, Yag PC OS, AMD OD. 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 Pt using Azelastine OU prn. Pt states VA blurry, like looking through a fog. Pt states it's difficult to drive at night due to headlight glare, and it's difficult to see small print. DVA and NVA gradual decrease OD x 3 mos. Yag PC The 70 year old female presents for evaluation of Yag PC in the right eye and left eye. Hx of PC IOL OU, Yag PC OU, AMD OD. 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 Pt using Azelastine OU prn. Pt states VA blurry, like looking through a fog. Pt states it's difficult to drive at night due to headlight glare, and it's difficult to see small print. DVA and NVA gradual decrease OU x 2 mos. Testing only The 69 year old female presents for evaluation of Testing only in the right eye and left eye. IOL Master and Pentacam. Cataract evaluation The 69 year old female presents for evaluation of Cataract evaluation in the right eye and left eye. Hx of Cataracts OU and Dr[place]en. Pt is NIDDM II with and A1c of 6.2 Pt states it's difficult to drive at night due to headlight glare, and it's difficult to see small print. DVA and NVA gradual decrease OU x 7-9 mos. Pt stopped going to [facility] this past winter because the glare from headlights was too blinding. Functional Status Date Functional Assessmen t No Information Instructions Date Instruction Francisca Pelletierr lizandro Impression/Plan Impression/Plan Impression/Plan Assessments Type Assessment Date assessment Other secondary cataract, right eye Patient Care Teams Name Effective Dates (start - stop) Status Members No Information
--- OUTSIDE RECORDS SUMMARY | 2024-10-25 13:29 | XMS_ITS | Clinical Summary ---
Author Organization [facility] [address] Address [address] [place] [address] Care Team Providers Care Learning Solutions Specialist Name Role Phone Francisco J Doe MD Primary Care Provider [phone] Allergies Active Allergy Reactions Criticality Noted Date [...] ORAL) Take by mouth Active B complex 92-vyzyo-Q-biot -zinc 9-091-108-50 be-gf-phm-mg tablet Take by mouth Active cholecalciferol (VITAMIN D-3) 5,000 unit tablet Active azelastine 0.15 % (205.5 mcg) spray,non-aeros ol Active vitamins A,C,E-zinc-katherine er 7,160-113-100 xgmo-xa-iabi tablet,delayed release (DR/EC) Take by mouth Active [...] Resolved Date Abnormal stress test 10/24/2020 022 Encounters Date Type Department Care Team Description 07/25/2024 Telephone [facility] Cardiology [address] [facility] [address] [place] [address] Donny Davila MD Med Refill from Last 3 Months Surgical History Surgery Date Site/Laterality Comments CHOLECYSTECTOMY HYSTERECTOMY Medical History Medical History Date Comments Hypertension Chronic cellulitis Kidney disease Diabetic neuropathy (HCC) Thyroid disease Hyperlipidemia Thyroid nodule Family History Medical History Relation Name Comments Alcohol abuse Father Coronary artery disease Father Obesity Father Cancer Mother Relation Name Status Comments Father (Age 78) Mother (Age 82) Social History Tobacco Use Types Packs/Day Years Used Date Smoking Tobacco: Never Smokeless Tobacco: Never Tobacco Cessation:Counseling Given: Not Answered Personal Safety Answer Date Recorded Getting School Help Needed Not on file 10/24 Comments Unknown Sex and Gender Information Value Date Recorded Sex Assigned at Not on file Legal Sex Female 2:10 AM OUTPATIENT CODING SPECIALIST Gender Identity Not on file Sexual Orientation Not on file Obstetrics History Last Filed Vital Signs Vital Sign Reading Time Taken Comments Blood Pressure 137/78 06/19/2024 12:32 PM CDT Pulse 60 06/19/2024 12:32 PM CDT Temperature 36.5 C (97.7 F) 10/21/2020 9:20 AM OUTPATIENT CODING SPECIALIST Respiratory Rate - - Oxygen Saturation 98% 06/19/2024 12: 32 PM CDT Inhaled Oxygen Concentration - - Weight 86.1 kg (189 lb 12.8 oz) 024 12:32 PM CDT Height 172.7 cm (5' 8 ) 06/19/2024 12:3 2 PM CDT Body Mass Index 28.86 06/19/2024 12:32 PM CDT Plan of Treatment Health Maintenance Due Date Last Done Comments Depression Screening 1948 Fall Risk Assessment 1950 Hepatitis C Screening 1950 Osteoporosis Screening-Bone Density Scan 1948 Hepatitis B Screening 1966 Zoster Vaccine (1 of 2) 1998 Well Visit 65+ 2013 Pneumococcal vaccine 65+ (2 of 2 - PPSV23) 10/26/2013 10/26/2012 Influenza Vaccine (#1) 2024 8, 06/03/2017, 06/08/2016, Additional history exists DTaP/Tdap/Td Vaccine (2 - Td or Tdap) 10/23/2024 10/23/2014 Insurance [id number] [facility] [id number] [facility] Advance Directives For more information, please contact: [phone] Documents on File Type Date Recorded Patient Shop Assistant Expl anation ADVANCE DIRECTIVE 01/10/2014 12:00 AM MICHELLE R OF BOARD SETTER FINANCIAL/MEDICAL Care Teams Learning Solutions Specialist Relationship Specialty Start Date End Date Francisco J Doe MD [address] [place], [place] [id number] PCP - General Family Medicine 06/19/24
--- OUTSIDE RECORDS SUMMARY | 2024-10-25 13:29 | XMS_ITS | Clinical Summary ---
Author Organization [facility] Address [address] [place] [address] Care Team Providers Care Primary Care Physician Name Role Phone Unavailable Primary Care Provider Unavailabl e Social History Tobacco Use Types Packs/Day Years Used Date Smoking Tobacco: Never Assessed Comments Unknown Sex and Gender Information Value Date Recorded Sex Assigned at Not on file Legal Sex Female 7:00 PM CDT Gender Identity Not on file Sexual Orientation Not on file Last Filed Vital Signs Vital Sign Reading Time Taken Comments Blood Pressure 128/78 05/20/2017 10:37 AM CDT Pulse 71 05/20/2017 10:37 AM CDT Temperature - - Respiratory Rate - - Oxygen Saturation - - Inhaled Oxygen Concentration - - Weight 90.7 kg (200 lb) 05/20/2017 10:37 AM CDT Height 171.5 cm (5' 7.5 ) 05/20/2017 10:37 AM CD T Body Mass Index 30.86 05/20/2017 10:37 AM CDT Plan of Treatment Health Maintenance Due Date Last Done Comments Hepatitis C 1966 Zoster Vaccines (1 of 2) 1998 Dexa Scan (General) 2013 Pneumococcal Vaccine: 65+ Years (1 of 1 - PCV) 2013 10/26/2012 RSV Immunization or 60+ Years (1 - 1-dose 75+ series) 2023 COVID-19 Vaccine ( - 2023-2 5 season) 2024 Influenza Adult (#1) 2024 06/03/2017, 06/08/2016, 04/05/2015 DTaP, Tdap and Td Vaccines ( 2 - Td or Tdap) 10/23/2024 10/23/2014 Meningococcal B Vaccine Aged Out No l onger eligible based on patient's age to complete this topic Meningococcal Vaccine Aged Out No evelyn omar eligible based on patient's age to complete this topic RSV Immunizations Under 20 Months Aged Out No longer eligible b ased on patient's age to complete this topic
== END 2024-10-25 11:29 | disposition home or self-care (01) ==
LOC: ANHSURGERY 11:35
PROVIDERS: Anesthesiology; PCP Family Medicine; Visit Provider Podiatrist Foot & Ankle Surgery
DX: Z01.818 Encounter for other preprocedural examination (principal); I13.0 Hypertensive heart and chronic kidney disease with heart failure and stage 1 through stage 4 chronic kidney disease, or unspecified chronic kidney disease; I50.9 Heart failure, unspecified; N18.2 Chronic kidney disease, stage 2 (mild); E78.5 Hyperlipidemia, unspecified
CPT/HCPCS: 36415; 80048; 85610; 85730; 93005

== ENCOUNTER 2024-11-10 00:33 | Day surgery (SDC) | payer OTHER, SELFPAY ==
[2024-10-23 13:03] VITALS: BMI 29.5
--- NOTE | 2024-10-23 13:18 | PC.NURSE ---
Report to the Outpatient Waiting Room, entrance under the green pavilion located off [facility], at time _0900am on date _11/10/24 . Planned Procedure Time: _1100am .? Time changes happen often and if your time is changed the preop area will call you the afternoon before. - You and your visitor will be asked to self-screen and do not enter if you have any COVID symptoms. Please call surgeon if you need to reschedule. - A mask is optional within the hospital at this time. Patients may have clear liquids (water, carbonated beverages, clear teas, apple juice) until 3 hours prior to surgery with a maximum of 20 ounces. - No food from midnight until time of surgery and no smoking, or chewing tobacco (or any form of nicotine). No chewing gum, candy or mints. (0800am) Take only the following medications with a SIP of water on the morning of surgery: __Metoprolol, Levothyroxine DO NOT STOP ANY OF YOUR OTHER PRESCRIPTION MEDICATIONS PRIOR TO SURGERY EXCEPT THE FOLLOWING Hold all vitamins and supplements for 3 days per anesthesiologist.Date to take last dose___11/06/24 Medications to discontinue per physician ___HOLD ELIQUIS For 3 days prior to surgery per Dr Foley Date to take last dose 11/06/24 Please no make-up, nail [place], hairspray, perfume, deodorant, or body powder the day of surgery.? No jewelry (including any body piercings) or valuables the day of surgery, leave them at home.? Please take a shower or bath the night before, or the morning of, surgery with an antibacterial soap.? Wear comfortable, loose fitting clothing.? - Jewelry must be removed prior to entering the operating room.? Rings and piercings that are not removed may be cut off. - The hospital will not accept responsibility for valuables.? - Please leave all valuables, including medications, at home the day of surgery. If you are going home after surgery, a licensed car pick up driver must drive you home.? - NO public transportation without another adult if you receive anesthesia. - We recommend that an adult stay with you for 24 hours following discharge. - We also recommend that you do not drive, make important decision, drink alcoholic beverages, or take any drugs that were not prescribed by your health care provider for at least 24 hours after your discharge time. Follow any additional instructions given to you from your surgeon. Telephone instructions given to ___Patient and asked if any additional questions and then verbalized understanding. Patient advised to call surgeon office or pre surgery nurse liaison [phone] if any additional questions.
[2024-11-10] VITALS (8 sets, daily range): BP systolic 138–155; BP diastolic 55–67; PULSE 54–63; RESP 12–18; TEMP 36.8–37.1; O2SAT 94–100
--- NOTE | ~2024-11-10 | XR_ITS ---
INTRAOPERATIVE FLUOROSCOPY: CLINICAL HISTORY: 74 years old Female; LEFT FOOT PROCEDURE COMMENTS: Limited intraoperative fluoroscopy of the left foot was performed. CUMULATIVE DOSE: 0.07 mGy FLUOROSCOPY TIME: 15 seconds FINDINGS/IMPRESSION: Please refer to operative note for further details. Reviewed, dictated and finalized at location A.
--- OUTSIDE RECORDS SUMMARY | 2024-11-10 00:35 | XMS_ITS | Clinical Summary ---
Author Organization [facility] [address] Address [address] [place] [address] Care Team Providers Care Electric Truck Crane Operator Name Role Phone Francisco J Doe MD Primary Care Provider [phone] Allergies Active Allergy Reactions Criticality Noted Date [...] ORAL) Take by mouth Active B complex 11-lllbp-P-biot -zinc [id number] ra-cy-zmw-mg tablet Take by mouth Active cholecalciferol (VITAMIN D-3) 5,000 unit tablet Active azelastine 0.15 % (205.5 mcg) spray,non-aeros ol Active vitamins A,C,E-zinc-katherine er 7,160-113-100 imjo-lw-llga tablet,delayed release (DR/EC) Take by mouth Active metoprolol tartrate (LOPRESSOR) 25 mg immediate release tabletIndicatio ns:PAF (paroxysmal atrial fibrillation) (HCC) Take 1 tablet (25 mg total) by mouth 2 (two) times a day 60 tablet 11 10/24/2020 Active Eliquis 5 mg tabletIndicatio ns:PAF (paroxysmal atrial fibrillation) (HCC) TAKE 1 TABLET BY MOUTH TWICE A DAY 60 tablet 6 07/25/2024 Active Active Problems Problem Noted Date Diagnosed Date Mild aortic stenosis 11/18/2020 PAF (paroxysmal atrial fibrillation) 10/24/2020 Hypertension Hyperlipidemia Resolved Problems Problem Noted Date Diagnosed Date Resolved Date Abnormal stress test 10/24/2020 022 Surgical History Surgery Date Site/Laterality Comments CHOLECYSTECTOMY [...] on file Legal Sex Female 2:10 AM 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 Gender Identity Not on file Sexual Orientation Not on file Obstetrics History Last Filed Vital Signs Vital Sign Reading Time Taken Comments Blood Pressure 137/78 06/19/2024 12:32 PM CDT Pulse 60 06/19/2024 12:32 PM CDT Temperature 36.5 C (97.7 F) 10/21/2020 9:20 AM 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 Respiratory Rate - - Oxygen Saturation 98% [...] - Td or Tdap) 10/23/2024 10/23/2014 Insurance [employer] Advance Directives For more information, please contact: [phone] Documents on File Type Date Recorded Patient S3B Multi Sensor Operator Expl anation ADVANCE DIRECTIVE 01/10/2014 12:00 AM MICHELLE R OF LONG WALL SHEAR OPERATOR FINANCIAL/MEDICAL Care Teams Electric Truck Crane Operator Relationship Specialty Start Date End Date Francisco J Doe MD [address] [place] [address] PCP - General Family Medicine 06/19/24
--- OUTSIDE RECORDS SUMMARY | 2024-11-10 00:35 | XMS_ITS | Clinical Summary ---
Author Organization [facility] Address [address] [place] [address] Care Team Providers Care Hot Mill Roller Name Role Phone Unavailable Primary Care Provider [...]
--- OUTSIDE RECORDS SUMMARY | 2024-11-10 00:35 | XMS_ITS | Referral Summary ---
Author Organization [facility] [address] Address [address] [place] [address] Care Team Providers Care Legal Research Analyst Name Role Phone Francisco J Doe MD Primary Care Provider [phone] Allergies Active Allergy Reactions Criticality Noted Date [...] ORAL) Take by mouth Active B complex 88-eeslo-I-biot -zinc 6-294-210-50 xc-hd-xbu-mg tablet Take by mouth Active cholecalciferol (VITAMIN D-3) 5,000 unit tablet Active azelastine 0.15 % (205.5 mcg) spray,non-aeros ol Active vitamins A,C,E-zinc-katherine er 7,160-113-100 ayzy-lx-echt tablet,delayed release (DR/EC) Take by mouth Active [...] on file Legal Sex Female 2:10 AM 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 Gender Identity Not on file Sexual Orientation Not on file Last Filed Vital Signs Vital Sign Reading Time Taken Comments Blood Pressure 137/78 06/19/2024 12:32 PM CDT Pulse 60 06/19/2024 12:32 PM CDT Temperature 36.5 C (97.7 F) 10/21/2020 9:20 AM 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 Respiratory Rate - - Oxygen Saturation 98% 06/19/2024 12: 32 PM CDT Inhaled Oxygen Concentration - - Weight 86.1 kg (189 lb 12.8 oz) 024 12:32 PM CDT Height 172.7 cm (5' 8 ) 06/19/2024 12:3 2 PM CDT Body Mass Index 28.86 06/19/2024 12:32 PM CDT Plan of Treatment Not on file Insurance [facility] Member Subscriber Plan / Payer (Ef fective 2020-Present) Name:Nazia Ceballos Relation to Subscriber:Self Name:Nazia Ceballos Payer ID:[id number] (NAIC) Type:MEDICARE RISK OTHER Address: [place] [id number] [facility] Member Subscriber Plan / Payer ( fective 2020-Present) Name:Nazia Ceballos Relation to Subscriber:Self Name:Nazia Ceballos Payer ID:[id number] (NAIC) Type:MEDICARE RISK OTHER Address: [place] [id number] Advance Directives For more information, please contact: [phone] Documents on File Type Date Recorded 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
--- OUTSIDE RECORDS SUMMARY | 2024-11-10 00:35 | XMS_ITS | Continuity of Care Document ---
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 [id number], [place], [place], [address], [place]. tel:[phone] Referring Provider: Avel Sandoval OD, [address] [place], [address]. tel:[phone] Office/outpa tient Visit, Est Formerly [facility], [facility] [address], [place], [place], [address], [place] tel:[phone] [facility] (chief complaint) Other secondary cataract, bilateralOthe r secondary cataract, left eye Oct-0 0 [facility]. [id number], [place], [place], [address], [place]. tel:[phone] Referring Provider: Avel Sandoval OD, [address] [place], [address]. tel:[phone] Formerly [facility], [id number], [place], [place], [address], [place] tel:[phone] [place] No Information 0 Yury OD Yadi. [address] [place] [address] [address], [address], [place], [place], [address], [place]. tel:[phone] Formerly [facility], [address] [place] [address] [address], [place], [place], [address], tel:[phone] [facility] No Information 9 Fabian Gage. [address] [place] [address], [address], [place], [place], [address], [place]. tel:[phone] Referring Provider: Avel Sandoval OD, 1 [facility], [place], [address]. tel:[phone] Formerly [facility], [address] [place] [address] [address], [place], [place], [address], tel:[phone] [facility] No Information 9 [facility]. [address] [place] [address] [facility], [address], [place], [place], [address], [place]. tel:[phone] Referring Provider: Avel Sandoval OD, 1 [facility], [place], [address]. tel:[phone] Formerly [facility], [address] [place] [address] [address], [place], [place], [address], [place] tel:[phone] [facility] [place] Testing only (chief complaint) No Information 9 Fabian Gage. [address] [place] [address] [facility], [address], [place], [place], [address], [place]. tel:[phone] Referring Provider: Avel Sandoval OD, 1 [facility], [place], [address]. tel:[phone] Formerly [facility], [address] [place] [address] [address], [place], [place], [address], [place] tel:[phone] [facility] Cataract evaluation (chief complaint) Combined forms of age-related cataract, bilateralType 2 diabetes mellitus without complications Aug-0 9 Fabian [place]. [address], [place], [place], [address], [place]. tel:[phone] Referring Provider: Avel Sandoval OD, 1 [facility], [place], [address]. tel:[phone] Family History Family Member Type Diagnosis Age At Onset Problem (finding) Family history of Diabe daniela mellitus Problem Family history o f degenerative disorder of macula Payers Payer name Insurance type Covered democrat ID Authoriza tidenise(s) [employer] [id number] Social History Type Description Quantity Date Captured [...] x 7-9 mos. Pt stopped going to [employer] this past winter because the glare from headlights was too blinding. Functional Status Date Functional Assessmen t No Information Instructions Date Instruction Francisca Pelletierr lizandro Impression/Plan Impression/Plan Impression/Plan Assessments Type Assessment Date assessment Other secondary cataract, right eye Patient Care Teams Name Effective Dates (start - stop) Status Members No Information
--- NOTE | 2024-11-10 07:17 | WPDHPUPDATE1 ---
History and Physical Update Update Date/Time: 11/10/24 07:17 History and Physical has been reviewed, including an updated exam of the patient. There are NO changes in the patient's condition. Risks, benefits, and alternatives have been discussed and questions answered. Patient agrees to proceed with procedure.
[2024-11-10] MEDS: LACTATED RINGERS 1,000 ML 30 ML IV CONT (10:00)
[2024-11-10 10:16] LABS: Glucose Point of Care 107 mg/dl (65-105)
--- NOTE | 2024-11-10 10:56 | WPDANESEPPF ---
Anes - Initial Pre Proc Eval Procedure: Operation Date: 11/10/24 11:00 Proposed Procedures p Arthrodesis of Interphalangeal Joint Left Hallux - Roger Foley Jr., DPM s Exterior Hallucis Longus Tendon Lengthening Left Foot - Roger Foley Jr., DPM Date/Time: 11/10/24 10:56 Surgeon: Roger Foley Jr., DPM Pre Op Diagnosis: Hallux Malleus Left Foot Patient Data Age: 74 Gender: F Height: 1.73 m Weight: 90.1 kg Last Vital Signs Temp 98.7 F 11/10/24 10:34 Pulse 60 11/10/24 10:34 Resp 14 11/10/24 10:34 BP 141/67 H 11/10/24 10:34 Pulse Ox 99 11/10/24 10:34 O2 Del Method Room Air 11/10/24 10:34 Allergies Allergy/AdvReac Type Severity Reaction Status Date / Time allopurinol Allergy Intermediate diarrhea Verified 11/10/24 10:32 clindamycin Allergy Intermediate Rash Verified 11/10/24 10:32 levofloxacin Allergy Intermediate Rash Verified 11/10/24 10:32 Sulfa (Sulfonamide Allergy Mild rash and Verified 11/10/24 10:32 Antibiotics) nausea Home Medications ?Medication ?Instructions ?Recorded ?Confirmed ?Type cholecalciferol (vitamin D3) 125 5,000 unit PO DAILY 07/05/19 10/23/24 History mcg (5,000 unit) tablet vitamin B complex (B 1 tablet PO DAILY 07/05/19 10/23/24 History Complex-Vitamin B12 tablet) blood-glucose meter (Contour Meter #1 ea 09/03/20 10/23/24 Rx kit) lancets 28 gauge (Monolet Thin #300 ea 09/03/20 10/23/24 Rx Lancets) clotrimazole-betamethasone 1 See Rx Instructions .Route 03/11/22 10/23/24 Rx %-0.05 % topical cream .COMPLEX #45 grams blood sugar diagnostic (Contour #300 ea 09/01/23 10/23/24 Rx Test Strips) apixaban 5 mg tablet (Eliquis) See Rx Instructions .Route 12/03/23 11/10/24 Rx .COMPLEX #60 tabs metoprolol tartrate 25 mg tablet See Rx Instructions .Route 02/29/24 11/10/24 Rx .COMPLEX #180 tabs atorvastatin 10 mg tablet See Rx Instructions .Route 10/03/24 10/23/24 Rx .COMPLEX #90 tabs benazepril 40 mg tablet See Rx Instructions .Route 10/03/24 10/23/24 Rx .COMPLEX #90 tabs dapagliflozin propanediol 10 mg See Rx Instructions .Route 10/03/24 10/23/24 Rx tablet (Farxiga) .COMPLEX #90 tabs furosemide 20 mg tablet See Rx Instructions .Route 10/03/24 10/23/24 Rx .COMPLEX #90 tabs levothyroxine 50 mcg tablet See Rx Instructions .Route 10/03/24 10/23/24 Rx .COMPLEX #90 tabs acetaminophen 650 mg 650 mg PO Q12H PRN arthritis 10/23/24 10/23/24 History tablet,extended release (Tylenol Arthritis Pain) azelastine 0.05 % eye drops See Rx Instructions .Route 10/23/24 10/23/24 History .COMPLEX PRN eye irritation Laboratory Tests 11/10/24 09:53 POC Capillary Glucose 107 H mg/dl (65-105) Patient hx anesthesia problems: post op nausea/vomiting Family hx anesthesia problems: none Results Review: All pre-operative results and documents have been reviewed as part of the pre-operative evaluation. [facility] Past Medical History Medical History CKD (chronic kidney disease) stage 2, GFR 60-89 ml/min Diabetic peripheral neuropathy Hypothyroidism (acquired) Chronic cellulitis Thyroid nodule Mixed hyperlipidemia Osteoporosis Diabetic neuropathy Benign essential HTN Surgical History Surgical History Hx of hysterectomy for benign disease Hx of cholecystectomy Family History Family History Father Alcoholism Diabetes mellitus Hypertension Mother Cancer Hypertension Thyroid disorder Social History Social History Social History: Smoking status: Never smoker Second hand tobacco smoke exposure: No Alcohol intake: never Substance use: never Substance use type: does not use Do You Feel Safe in your Home?: Yes Lack of Transportation: No Lack of Food: Never True Current Housing: I Have Housing Concerned About Future Housing: No Difficulty Paying Gas/Electric Bills: No Difficulty Paying for Meds: No Currently Unemployed: YES Education: Don't Know Difficulty w/ Childcare or Family Care: No Living arrangements: alone Occupation/Education: retired Gender identity (if verbalized by the patient): Female Sexual Orientation (if Verbalized by the Patient): Straight or Heterosexual Spiritual care concerns: No Agree to blood products: Yes Anes - Eval Final PreProcedure Day of Procedure 11/10/24 10:56 Patient weight: obese Heart: regular rate and rhythm Lungs: clear to auscultation Airway: Mallampati scale class II Neurological: alert and oriented Last oral intake: >/= 8 hours ASA classification: III Emergent: no Anesthetic plan: proceed Anesthesia type and monitoring: general LMA and standard monitoring Results Review: All pre-operative results and documents have been reviewed as part of the pre-operative evaluation. Informed Consent: The patient's anesthetic plan and its attendant risks and benefits were discussed with the patient/family/POA. Questions were solicited and answers provided to the satisfaction of the patient/family/POA.
[2024-11-10] MEDS: ceFAZolin 2 GM/D5W 50 ML 2 GM/50 ML BAG IVPB (11:04)
[2024-11-10] MEDS: LIDOCAINE 2% LOCAL INJ 20 ML VIAL 10 ML INFILTRATE (11:27)
[2024-11-10] MEDS: BUPivacaine HCL 0.5% 10 ML AMP INFILTRATE (11:27)
[2024-11-10 12:31] LABS: Glucose Point of Care 91 mg/dl (65-105)
--- NOTE | 2024-11-10 12:34 | W.PM.PROC2 ---
Procedure Note - Detailed Date of Procedure 11/10/24 Pre-op Diagnosis Hallux Malleus Left Foot Post-op Diagnosis Same Procedure Performed 1. Arthrodesis of the interphalangeal joint of the left hallux 2. 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 A pneumatic ankle tourniquet was placed about the patient's ankle. Following IV sedation, I performed a proximal first metatarsal Ortega Block. The foot was then scrubbed, prepped, and draped in the usual aseptic manner. An Esmarch bandage was then used to examine the patient's foot and pneumatic ankle tourniquet was then inflated. Surgery began in the following manner. Attention was directed to the left hallux of the left foot where a 3cm linear incision was made just proximal to the nail fold extending to the base of the hallux. A transverse tenotomy was created dorsal to the interphalangeal joint, next the head of the proximal phalanx was resected with an sagittal saw blade. Next, I drove a guide wire from the base of the distal phalanx exiting the hallux and retrograded through the proximal phalanx, drove a 3.5mm by 34mm Headless Cannulated Screw with excellent compression noted. Fluoroscopy was used to make sure that the digit and implant were both appropriately positioned. I removed the Guide wire. I performed a z lengthening proximal to the Interphalangeal Joint to the metatarsal phalangeal joint, Next, I Performed a transverse incision at the 1st Metatarsal phalangeal joint and released the plantar structures in order to the decrease the contracture at the 1st metatarsal phalangeal joint . I repaired the extensor tendon with 4.0 Vicryl. I reapproximated the subcutaneous structures with 4.0 Vicryl and the skin with 4-0 Monocryl. Upon completion of the procedure, the incision was dressed with Adaptic, 4 x 4's, Kerlix, and Coban. The pneumatic ankle tourniquet was then deflated and a prompt hyperemic response noted to all digits of the foot. A surgical shoe was then applied. The patient did very well with the procedure and the anesthesia. The patient was transferred to the recovery room with vital signs stable and vascular status intact to all remaining toes of the affected foot. Following a period of postoperative monitoring, the patient will be discharged home on the following written and oral postoperative instructions: 1. Keep the dressing clean, dry, and intact. Use a cast protector bag with showers. 2. The patient should use a surgical shoe for ambulation postoperatively. 3. The patient should be on bedrest with bathroom privileges and elevate the affected foot when at rest. 4. The patient to contact Dr. Foley for all postop care and if any problems arise. 5. Prescriptions were written for Percocet 5/325 dispensed 40 to be taken 1 p.o. q.4 to 6 hours as needed for severe pain. Implants One Arthrex 3.5mm Headless Cannulated Screw Estimated Blood Loss 1 Drains No Packing No Pathology None sent Complications No immediate complications Condition Stable Disposition Same day
== END 2024-11-10 14:31 | disposition home or self-care (01) ==
PROVIDERS: PCP Family Medicine; Visit Provider Podiatrist Foot & Ankle Surgery
PROC: (CPT 28755; principal; 2024-11-10 11:00)
PROC: (CPT 28750; 2024-11-10 11:00)
DX: M20.32 Hallux varus (acquired), left foot (principal); M20.42 Other hammer toe(s) (acquired), left foot; M21.6X2 Other acquired deformities of left foot; E11.22 Type 2 diabetes mellitus with diabetic chronic kidney disease; I12.9 Hypertensive chronic kidney disease with stage 1 through stage 4 chronic kidney disease, or unspecified chronic kidney disease; N18.2 Chronic kidney disease, stage 2 (mild); E11.42 Type 2 diabetes mellitus with diabetic polyneuropathy; E03.9 Hypothyroidism, unspecified; E78.2 Mixed hyperlipidemia; M81.0 Age-related osteoporosis without current pathological fracture; E66.9 Obesity, unspecified; Z68.30 Body mass index [BMI] 30.0-30.9, adult; Z79.01 Long term (current) use of anticoagulants; Z79.84 Long term (current) use of oral hypoglycemic drugs; Z98.890 Other specified postprocedural states; Z90.49 Acquired absence of other specified parts of digestive tract; Z80.9 Family history of malignant neoplasm, unspecified
CPT/HCPCS: 28755; 28208; 82948; 99199; J0690; J1100; J2003; J2405; J2704; J3010; J7120

== ENCOUNTER 2025-05-23 12:30 | Outpatient (CLI) | payer OTHER, SELFPAY ==
--- NOTE | ~2025-05-23 | MM_ITS ---
EXAMINATION: MM screening [facility] BI w marisa HISTORY: Screening TECHNIQUE: Craniocaudal and mediolateral oblique 3-D tomosynthesis images were obtained and synthetic 2-D images were generated. CAD analysis was submitted and interpreted. COMPARISON: 12/13/2023 BREAST PARENCHYMAL COMPOSITION: Not Dense: The breasts are almost entirely fatty. FINDINGS: There is no evidence of suspicious mass, calcification, or architectural distortion to suggest malignancy in either breast. [There has been no significant interval change. IMPRESSION: 1. No mammographic evidence of malignancy. Recommend routine screening mammography in one year. BI-RADS Category 1: Negative Reviewed, dictated, and finalized at Location A. Reviewed, dictated and finalized at location Q. IMPRESSION: 1. No mammographic evidence of malignancy. Recommend routine screening mammogra phy in one year. BI-RADS Category 1: Negative
== END 2025-05-23 12:31 | disposition home or self-care (01) ==
LOC: MICIMG 12:31
PROVIDERS: PCP Family Medicine; Visit Provider Obstetrics & Gynecology
DX: Z12.31 Encounter for screening mammogram for malignant neoplasm of breast (principal)
CPT/HCPCS: 77063; 77067